=== PATIENT | female | born 2000 | race Hispanic/Latino ===

== ENCOUNTER 2018-10-01 20:54 | Emergency (ER) | payer OTHER ==
--- NOTE | 2018-10-01 21:59 | RAD ---
RIGHT ANKLE THREE VIEWS: 10/01/18 HISTORY: 18-year-old female with history of sprained right ankle with right ankle pain. Mild lateral soft tissue swelling. No fracture, dislocation, or other acute process. IMPRESSION: Unremarkable right ankle with mild lateral soft tissue swelling. POS: [facility]
== END 2018-10-01 22:39 | disposition home or self-care (01) ==
LOC: ERS 20:54
DX: S93.401A Sprain of unspecified ligament of right ankle, initial encounter (principal); J45.909 Unspecified asthma, uncomplicated; Z79.899 Other long term (current) drug therapy; X50.1XXA Overexertion from prolonged static or awkward postures, initial encounter